=== PATIENT | female | born 1980 | race Caucasian/White ===

== ENCOUNTER 2019-06-30 14:56 | Inpatient (IN) | payer OTHER ==
[~2019-06-30] VITALS: Ht 154.9 cm; Wt 59.0 kg
[2019-07-28] MEDS ORDERED: CONCEPT DHA CA1 EACH PO (08:29)
== END 2019-07-29 11:45 | DRG 807 ==
LOC: OB/GYN 07-14 14:15 → LDR 07-27 01:52 → OB/GYN 07-27 10:40
PROVIDERS: ADMIT Obstetrics & Gynecology Maternal & Fetal Medicine
PROC: 10E0XZZ Delivery of Products of Conception, External Approach (ICD-10-PCS; principal; 2019-07-27)
PROC: 0HQ9XZZ Repair Perineum Skin, External Approach (ICD-10-PCS; 2019-07-27)
PROC: 4A1HXCZ Monitoring of Products of Conception, Cardiac Rate, External Approach (ICD-10-PCS; 2019-07-27)
DX: O70.0 First degree perineal laceration during delivery (principal); Z37.0 Single live birth; Z3A.38 38 weeks gestation of pregnancy

== ENCOUNTER → 2019-11-09 | Outpatient (CLI) | payer OTHER ==
[~2019-11-09] MED LIST: CONCEPT DHA CA1 EACH PO
== END | disposition home or self-care (01) ==
LOC: MAMO-SONO 08:44
DX: N63.11 Unspecified lump in the right breast, upper outer quadrant (principal); N63.21 Unspecified lump in the left breast, upper outer quadrant; Z12.31 Encounter for screening mammogram for malignant neoplasm of breast; N64.4 Mastodynia; N60.11 Diffuse cystic mastopathy of right breast